=== PATIENT | male | born 1985 | race Caucasian/White ===

== ENCOUNTER 2020-10-27 13:42 | Emergency (ER) | payer SELFPAY ==
[~2020-10-27] VITALS: Ht 175.3 cm; Wt 75.0 kg
[2020-10-27] MEDS ORDERED: IBUPROFEN 600MG TABLET PO ONE (16:30)
[2020-10-27] MEDS ORDERED: LIDOCAINE HCL/PF 1% 10 MG/ML 5ML VIAL IJ ONE ×2 (16:30→17:45)
[2020-10-27] MEDS ORDERED: BACITRACIN ZINC OINT UDPKT TOP ONE (16:30)
[2020-10-27] MEDS ORDERED: IBUP-2029 PO (18:16)
[2020-10-27 18:27] VITALS: BP 121/68
== END 2020-10-27 18:27 | disposition home or self-care (01) ==
LOC: ER 14:37
DX: S61.411A Laceration without foreign body of right hand, initial encounter (principal); W25.XXXA Contact with sharp glass, initial encounter; Y93.89 Activity, other specified; Y92.89 Other specified places as the place of occurrence of the external cause; Y99.8 Other external cause status
CPT/HCPCS: 12002; 99282; J3490; Z7610